=== PATIENT | male | born 1950 | race Caucasian/White ===

== ENCOUNTER 2017-11-26 18:16 | Emergency (ER) | payer MEDICARE ==
[2017-11-26 18:28] VITALS: TEMP 98.3
[2017-11-26] MEDS ORDERED: HYDROcodone 7.5MG/APAP 325MG 1 EA TAB PO ONE (18:33)
[2017-11-26] MEDS ORDERED: KETOROLAC TROMETHAMINE INJ 30 MG/ML VIAL IM ONE (18:33)
--- NOTE | 2017-11-26 18:58 | RAD ---
EXAM: XR Chest, 2 Views CLINICAL HISTORY: The patient is 67 years old and is Male; left posterior lower rib pain fall 2 days ago TECHNIQUE: Frontal and lateral views of the chest. COMPARISON: No prior studies available. FINDINGS: LUNGS: Unremarkable. No consolidation. PLEURAL SPACE: Unremarkable. No pneumothorax. HEART: Unremarkable. No cardiomegaly. MEDIASTINUM: Unremarkable. BONES/JOINTS: Unremarkable. No acute fracture noted. IMPRESSION: - No active disease is seen in the chest. Electronically signed by: Kwaku Bright MD 11/26/2017 6:57 PM CDT
--- NOTE | 2017-11-26 19:02 | RAD ---
EXAM: XR Left Ribs, 2 Views CLINICAL HISTORY: The patient is 67 years old and is Male; left posterior lower rib pain fall 2 days ago TECHNIQUE: Frontal and oblique views of the left ribs. COMPARISON: No prior relevant studies available for comparison. FINDINGS: LUNGS: Unremarkable as visualized. No consolidation. PLEURAL SPACE: No left-sided pneumothorax. BONES/JOINTS: No rib fracture identified on the submitted views. IMPRESSION: No rib fracture identified on the submitted views. Electronically signed by: Kwaku Bright MD 11/26/2017 7:00 PM CDT
[2017-11-26] MEDS ORDERED: CYCLOBENZAPRINE HCL 10 MG TAB PO ONE (19:12)
--- NOTE | 2017-11-26 19:14 | ED.PDOC ---
History of Present Illness - General Chief Complaint: Back Pain or Injury Stated Complaint: fall and rib/back pain Time Seen by Provider: 11/26/17 18:23 Source: patient Exam Limitations: no limitations - History of Present Illness Initial Comments: the patient is a 67-year-old male presenting to the emergency room secondary to left posterior lower thorax pain after he fell over a propane bottle 2 days ago. He does have some bruising and a mild abrasion over the area. There is no obvious crepitus or deformity. He has no pain over the spine. He is moving good air and his lungs. There is no anterior pain. He does have a mild bruise over his left shoulder but no real pain there. He already takes hydrocodone. Timing/Duration: 24 hours Severity: moderate Improving Factors: nothing Worsening Factors: movement Associated Symptoms: denies symptoms Allergies/Adverse Reactions: Allergies NO KNOWN ALLERGY Allergy (Verified 11/26/17 18:29) Home Medications: Ambulatory Orders Aspirin [Aspirin Adult Low Dose] 81 mg PO DAILY 11/26/17 B-Complex W/ Folic Acid [B Complex] 1 tab PO DAILY 11/26/17 Clopidogrel Bisulfate 75 mg PO DAILY 11/26/17 Cyclobenzaprine HCl [Flexeril] 10 mg PO Q8HR PRN #45 tab 11/26/17 Fluoxetine HCl 40 mg PO DAILY 11/26/17 HYDROcodone 10MG/APAP 325MG [[place] 10/325] 1 tab PO PRN PRN 11/26/17 Lisinopril 20 mg PO DAILY 11/26/17 Potassium [Chelated Potassium] 95 mg PO DAILY 11/26/17 Simvastatin 40 mg PO DAILY 11/26/17 Review of Systems - Review of Systems Constitutional: States: no symptoms reported EENTM: States: no symptoms reported Respiratory: States: no symptoms reported Cardiology: States: chest pain Gastrointestinal/Abdominal: States: no symptoms reported Genitourinary: States: no symptoms reported Musculoskeletal: States: see HPI Skin: States: no symptoms reported Neurological: States: no symptoms reported Endocrine: States: no symptoms reported All other Systems: No Change from Baseline Past Medical History (General) - Patient Medical History Hx Seizures: No Hx Stroke: Yes - x 4 CVA Hx Dementia: No Hx Asthma: No Hx of COPD: No Hx Cardiac Disorders: Yes - CAD Hx Congestive Heart Failure: No Hx Pacemaker: No Hx Hypertension: Yes Hx Thyroid Disease: No Hx Diabetes: No Hx Gastroesophageal Reflux: No Hx Renal Disease: No Hx of HIV: No Hx Hepatitis C: No Hx MRSA: No Surgical History: no surgical history - Vaccination History Hx Influenza Vaccination: No Hx Pneumococcal Vaccination: No - Social History Hx Tobacco Use: No - Triage Comment ED Triage Comment: Patient states he had a previous stroke which causes him to drag his right foot and he caught his foot on a propane take and fell on the tank Sunday. Today the pain has gotten worse and believes he has broken a rib. Family Medical History - Family History Mother Family History: Unknown Physical Exam - Physical Exam General Appearance: Alert, Other - e is obviously hurting and having some muscle spasm Eye Exam: bilateral normal Ears, Nose, Throat: hearing grossly normal, normal ENT inspection, normal pharynx Neck: full range of motion, supple Respiratory: lungs clear, normal breath sounds, no respiratory distress, no accessory muscle use, other - left posterior lower chest wall tenderness to palpation with associated bruising. No obvious crepitus. Cardiovascular/Chest: normal peripheral pulses, regular rate, rhythm, no edema Peripheral Pulses: radial,right: 2+, radial,left: 2+, dorsalis pedis,right: 2+, dorsalis pedis,left: 2+ Gastrointestinal/Abdominal: non tender, soft Rectal Exam: deferred Back Exam: other - see above Neurologic: research executive II-XII nml as tested, alert, normal mood/affect, oriented x 3 Skin Exam: normal color - ruising as noted above Comments: Vital Signs - 24 hr 11/26/17 18:20 Temperature 98.3 F Pulse Rate [ 100 H monitor] Respiratory 22 Rate Blood Pressure 172/79 [Left Arm] O2 Sat by Pulse 94 L Oximetry Progress - Progress Progress: 11/26/17 19:14 the patient is a 67-year-old male presenting to the emergency room secondary to left posterior lower rib cage pain due to a fall from 2 days ago. He no doubt has some bruising in the area and likely does have nondisplaced rib fractures over that area. He can continue his hydrocodone. He will additionally be written for Flexeril for as needed use. He does need to take big deep breaths to prevent atelectasis and subsequent pneumonia. Oral anti- inflammatories can help as well. He will have pain for several weeks. ER warnings were given. He should follow back up with his primary care doctor towards the end of the week. x-rays of the chest and rib series failed to show any displaced rib fracture or pneumothorax. Departure - Departure Clinical Impression: Contusion of rib on left side Qualifiers: Encounter type: initial encounter Qualified Code(s): S20.212A - Contusion of left front wall of thorax, initial encounter Disposition: Discharge to Home or Self Care Departure Forms: ED Discharge - Pt. Copy, Patient Portal Self Enrollment Diet: regular diet Activity: increase activity as tolerated Prescriptions: Cyclobenzaprine HCl [Flexeril] 10 mg PO Q8HR PRN #45 tab PRN Reason: Muscle Spasms Home Medications: Ambulatory Orders Aspirin [Aspirin Adult Low Dose] 81 mg PO DAILY 11/26/17 B-Complex W/ Folic Acid [B Complex] 1 tab PO DAILY 11/26/17 Clopidogrel Bisulfate 75 mg PO DAILY 11/26/17 Cyclobenzaprine HCl [Flexeril] 10 mg PO Q8HR PRN #45 tab 11/26/17 Fluoxetine HCl 40 mg PO DAILY 11/26/17 HYDROcodone 10MG/APAP 325MG [[place] 10/325] 1 tab PO PRN PRN 11/26/17 Lisinopril 20 mg PO DAILY 11/26/17 Potassium [Chelated Potassium] 95 mg PO DAILY 11/26/17 Simvastatin 40 mg PO DAILY 11/26/17 Additional Instructions: the patient is a 67-year-old male presenting to the emergency room secondary to left posterior lower rib cage pain due to a fall from 2 days ago. He no doubt has some bruising in the area and likely does have nondisplaced rib fractures over that area. He can continue his hydrocodone. He will additionally be written for Flexeril for as needed use. He does need to take big deep breaths to prevent atelectasis and subsequent pneumonia. Oral anti- inflammatories can help as well. He will have pain for several weeks. ER warnings were given. He should follow back up with his primary care doctor towards the end of the week. x-rays of the chest and rib series failed to show any displaced rib fracture or pneumothorax.
[2017-11-26 19:28] VITALS: BP 156/77; O2SAT 100
== END 2017-11-26 19:28 | disposition home or self-care (01) ==
LOC: ER 18:16 → EDBD 18:16 → ER 19:28
DX: S20.212A Contusion of left front wall of thorax, initial encounter (principal); I25.10 Atherosclerotic heart disease of native coronary artery without angina pectoris; Z86.73 Personal history of transient ischemic attack (TIA), and cerebral infarction without residual deficits; I10 Essential (primary) hypertension; Z79.82 Long term (current) use of aspirin; Z79.02 Long term (current) use of antithrombotics/antiplatelets
CPT/HCPCS: 71046; 71101; J1885